=== PATIENT | female | born 1975 | race Caucasian/White ===

== ENCOUNTER → 2019-03-22 | Outpatient (CLI) | payer OTHER ==
--- NOTE | 2019-03-22 14:47 | CARD ---
MR#: [id number] Date of Study: 03/22/2019 Ordering Physician: CALLI BEASLEY, Referring Physician: CALLI BEASLEY, Tech: Sharee Mobley RDCS APPROVED REPORT INDICATION Chest Pain Reason : Patient complained of pain PROCEDURE The patient underwent an Exercise Stress Test using the Lex Protocol. Blood pressure, heart rate, a nd EKG were monitored. An Echocardiogram was performed by parking technician in four stages in quad fashion. At peak stress four se lected images were obtained and placed side by side with resting images for comparison. STRESS ECHO FINDINGS The resting Echocardiogram showed normal left ventricular systolic contractility with an estimated Ej ection Fraction of about 60 %. The Resting Echocardiogram showed normal augmentation of myocardial wall segments using a 16 segment model. The Stress Echocardiogram showed normal augmentation of myocardial wall segments using a 16 segment m [place]. The Stress Echocardiogram left ventricular systolic contractility has an estimated Ejection Fraction of about 65%. Test Type: Exercise Stress Nurse/Tech: Lori Rudd RN Test Indications: Chest Pain Cardiac History and Allergies: See [employer] EMR NKDA Medications: See EMR Medical History: See EMR Resting ECG: SB Resting Heart Rate: 50 bpm Resting Blood Pressure: 103/50mmHg Pretest Chest Pain: No chest pain Nurse/Tech Notes S1S2, Lungs CTA Stress Symptoms Dyspnea POST EXERCISE Reason for Termination: Reached target heart rate Target HR: Yes Max HR: 160 bpm 90% of Maximum Predicted HR: 177 bpm Exercise duration: 12:02 min:sec, 4 Stage Exercise capacity: 12.8METs Max Blood Pressure: 147/63mmHg Blood Pressure response to exercise: Normal blood pressure response during stress. Heart Rate response to exercise: WNL Chest Pain: No. Arrhythmia: No. ST Change: No. RESTING ECG Rhythm: Sinus Repolarization: Normal STRESS ECG Rhythm: Sinus Stress EKG shows no significant changes. Preliminary Notification Critical Value: No <Conclusion> Normal baseline EKG Normal exercise capacity with 12.8 Mets achieved. No significant ischemic EKG changes. Normal resting wall motion and EF at 55% Normal stress wall motion and EF at 65%. (Images obtained at less than 85% APMHR, decreasing specific ity of the test). Signed by : Dain Ayonally Approved : 03/22/2019 14:46:42
== END | disposition home or self-care (01) ==
LOC: ECHO 13:10
PROVIDERS: ATTEND Internal Medicine Cardiovascular Disease
DX: R07.9 Chest pain, unspecified (principal)
CPT/HCPCS: 93017; 93350

== ENCOUNTER → 2019-03-27 | Outpatient (CLI) | payer OTHER ==
--- NOTE | 2019-03-27 13:20 | RAD ---
MR#: [id number] Date of Study: 03/27/2019 Ordering Physician: CALLI BEASLEY, Referring Physician: CALLI BEASLEY, Tech: Tang Payne MBA, RDMS, RVT, RDCS, RTR APPROVED REPORT Patient Location : OUT-PATIENT Indications Lower Extremity Edema : Bilateral Findings Grayscale images the bilateral greater and lesser saphenous veins do not show any obvious evidence of thrombus on limited imaging. The right great saphenous vein measures 6.1 mm and the left great saphenous vein measures 7.1 mm. Bot h the lesser and greater saphenous veins do not show any evidence of reflux. Critical Notification Critical Value: No <Conclusion> Negative for reflux in the bilateral greater and lesser saphenous veins. Signed by : Brent Holder, Electronically Approved : 03/27/2019 13:19:57
== END | disposition home or self-care (01) ==
LOC: US 12:20 → EDUNIT# 12:30
PROVIDERS: ATTEND Internal Medicine Cardiovascular Disease
DX: R60.0 Localized edema (principal)
CPT/HCPCS: 93970